=== PATIENT | male | born 1980 | race Caucasian/White ===

== ENCOUNTER 2016-07-10 13:20 | Emergency (ER) | payer MEDICARE, MEDICAID ==
[~2016-07-10] VITALS: Ht 180.3 cm; Wt 83.2 kg
[~2016-07-10 13:20] MED LIST: ARIP10TA13 INJ; ARIP10TA13 PO; BUPR75TA5 PO; ESCI20TA10 PO; FLUP25VI2 IM; LORA1TAB PO; PALI1.5T PO; RISP12.5 IM; RISP4TAB34; TRAZ100T15 PO
[2016-07-10] MEDS ORDERED: CEFTRIAXONE 1,000 MG ONE (14:20)
[2016-07-10] MEDS ORDERED: CEFTRIAXONE 1,000 MG IM ONE (14:30)
[2016-07-10 14:33] VITALS: BP 125/93
== END 2016-07-10 15:15 | disposition home or self-care (01) ==
LOC: ED 15:00
DX: L03.115 Cellulitis of right lower limb (principal)
CPT/HCPCS: 73610; 93971; 96372; 99284; J0696

== ENCOUNTER 2016-12-27 18:17 | Emergency (ER) | payer MEDICARE, MEDICAID ==
[~2016-12-27] VITALS: Ht 180.3 cm; Wt 90.0 kg
[~2016-12-27 18:17] MED LIST changes: -ARIP10TA13 INJ; -ARIP10TA13 PO; +ARIP10TA33 INJ; +ARIP10TA33 PO
[2016-12-27] MEDS ORDERED: LORazepam 1MG TABLET PO PRN (19:00)
[2016-12-27] MEDS ORDERED: ZIPRASIDONE 20 MG INJ IM PRN (19:00)
[2016-12-27 19:01] LABS: HEMATOCRIT 47.6 % (39.2-51.8); HEMOGLOBIN 15.5 g/dL (13.7-18.0)
[2016-12-27 19:10] LABS: ASPARTATE AMINO TRANSFERASE 24 U/L (15-37); BLOOD UREA NITROGEN 15 mg/dL (7-18)
[2016-12-27 19:14] LABS: ACETAMINOPHEN < 2 mcg/mL (10-30)
[2016-12-27] MEDS ORDERED: LORazepam 1MG TABLET ONE (20:41)
[2016-12-27] MEDS ORDERED: ZIPRASIDONE 20 MG INJ IM ONE (20:41)
[2016-12-28 11:10] LABS: DAU SCREEN DISCLAIMER
[2016-12-28 21:31] VITALS: BP 132/80
== END 2016-12-28 21:33 | disposition home or self-care (01) ==
LOC: ED 20:44
DX: F20.9 Schizophrenia, unspecified (principal); F31.9 Bipolar disorder, unspecified; F17.200 Nicotine dependence, unspecified, uncomplicated
CPT/HCPCS: 36415; 80053; 80307; 80329; 85025; 96372; 99284; J3486; G0479; G0480

== ENCOUNTER 2017-04-27 10:56 | Observation (INO) | payer MEDICARE, MEDICAID ==
[~2017-04-27] VITALS: Ht 180.3 cm; Wt 81.0 kg
[2017-04-27 12:51] LABS: BASOPHILS # (AUTO) 0.03 x10^3/uL (0-0.1); BASOPHILS % (AUTO) 0 % (0-1); EOSINOPHILS # (AUTO) 0.07 x10^3/uL (0-0.4); EOSINOPHILS % (AUTO) 1 % (1-7); LYMPHOCYTES # (AUTO) 1.72 x10^3/uL (1-3.4); LYMPHOCYTES % (AUTO) 18 % (22-44); MD NO; MEAN CORPUSCULAR HGB CONC 33.1 g/dL (33.2-36.2); MEAN CORPUSCULAR VOLUME 90.7 fL (81-97); MEAN PLATELET VOLUME 10.2 fL (7.4-10.4); MONOCYTES # (AUTO) 0.85 x10^3/uL (0.2-0.8); MONOCYTES % (AUTO) 9 % (2-9); NEUTROPHILS # (AUTO) 6.74 x10^3/uL (1.8-6.8); NEUTROPHILS % (AUTO) 72 % (42-75); PLATELET COUNT 227 x10^3/uL (130-400); RED BLOOD COUNT 4.66 x10^6/uL (4.38-5.82); RED CELL DISTRIBUTION WIDTH 14.9 % (9.4-14.8)
[2017-04-27 13:04] LABS: ALBUMIN 3.8 g/dL (3.4-5.0); ANION GAP 8 mmol/L (5-15); CALCIUM 8.8 mg/dL (8.5-10.1); CHLORIDE 105 mmol/L (98-107); CREATININE 0.87 mg/dL (0.7-1.3); SALICYLATE LEVEL 2.3 mg/dL (2.8-20.0)
[2017-04-27 13:06] LABS: ACETAMINOPHEN < 2 mcg/mL (10-30)
[2017-04-27 13:17] LABS: AMPHETAMINE SCREEN, URINE Positive (Negative); BARBITURATE SCREEN, URINE Negative (Negative); BENZODIAZEPINE SCREEN, URINE Negative (Negative); CANNABINOID SCREEN, URINE Positive (Negative); COCAINE SCREEN, URINE Negative (Negative); METHADONE SCREEN, URINE Negative (Negative); OPIATE SCREEN, URINE Negative (Negative)
[2017-04-27] MEDS ORDERED: ACETAMINOPHEN 325 MG TABLET PO PRN (17:00)
[2017-04-27] MEDS ORDERED: LORazepam 2 MG/ML, 1ML IM PRN (17:30)
[2017-04-28 17:33] VITALS: BP 129/90
[2017-04-28 19:44] VITALS: BP 142/95
[2017-04-29 07:50] VITALS: BP 125/89
[2017-04-29] MEDS ORDERED: METOPROLOL TARTRATE 50 MG TABLET PO SCH (10:00)
[2017-04-29 11:31] VITALS: BP 123/82
[2017-04-29 12:26] LABS: MICROSCOPIC NOT IND
[2017-04-29 12:29] LABS: CULTURE INDICATED? NO
[2017-04-29 19:26] VITALS: BP 128/87
[2017-04-29 21:30] VITALS: BP 124/86
[2017-04-29] MEDS ORDERED: ZIPRASIDONE 20MG CAPSULE PO ONE (22:00)
[2017-04-30 07:30] VITALS: BP 136/82
== END 2017-04-30 14:25 ==
LOC: ED 13:14 → SUATTDRO 16:36 → EDIP 16:56 → 2N 04-28 16:54
PROVIDERS: ADMIT Internal Medicine; ATTEND Internal Medicine
DX: R45.851 Suicidal ideations (principal); F32.9 Major depressive disorder, single episode, unspecified; F25.9 Schizoaffective disorder, unspecified
CPT/HCPCS: 36415; 71045; 80048; 80307; 80329; 81003; 82040; 85025; 96372; 99285; G0378; J2060; G0480

== ENCOUNTER 2017-08-04 12:57 | Emergency (ER) | payer MEDICARE, MEDICAID ==
[~2017-08-04] VITALS: Ht 180.3 cm; Wt 84.5 kg
[2017-08-04 12:59] VITALS: BP 130/84
== END 2017-08-04 14:02 | disposition home or self-care (01) ==
LOC: ED 14:00
DX: J34.0 Abscess, furuncle and carbuncle of nose (principal); L03.012 Cellulitis of left finger; F17.200 Nicotine dependence, unspecified, uncomplicated
CPT/HCPCS: 82962; 99283

== ENCOUNTER 2018-02-17 11:02 | Emergency (ER) | payer MEDICARE, MEDICAID ==
[~2018-02-17] VITALS: Ht 180.3 cm; Wt 89.0 kg
[~2018-02-17 11:02] MED LIST changes: +TRAZ-137 PO; -TRAZ100T15 PO
[2018-02-17 12:09] LABS: BASOPHILS # (AUTO) 0.03 x10^3/uL (0-0.1); BASOPHILS % (AUTO) 0 % (0-1); EOSINOPHILS % (AUTO) 0 % (1-7); LYMPHOCYTES # (AUTO) 1.03 x10^3/uL (1-3.4); LYMPHOCYTES % (AUTO) 6 % (22-44); MD NO; MEAN CORPUSCULAR HEMOGLOBIN 30.9 pg (27.5-34.5); MEAN CORPUSCULAR HGB CONC 33.8 g/dL (33.2-36.2); MEAN CORPUSCULAR VOLUME 91.6 fL (81-97); MEAN PLATELET VOLUME 9.5 fL (7.4-10.4); MONOCYTES # (AUTO) 0.55 x10^3/uL (0.2-0.8); MONOCYTES % (AUTO) 3 % (2-9); NEUTROPHILS # (AUTO) 16.08 x10^3/uL (1.8-6.8); NEUTROPHILS % (AUTO) 91 % (42-75); PLATELET COUNT 247 x10^3/uL (130-400); RED BLOOD COUNT 5.09 x10^6/uL (4.38-5.82); RED CELL DISTRIBUTION WIDTH 14.1 % (9.4-14.8)
[2018-02-17 12:23] LABS: ANION GAP 8 mmol/L (5-15); CHLORIDE 108 mmol/L (98-107); CREATININE 1.08 mg/dL (0.7-1.3)
[2018-02-17 12:42] LABS: AMPHETAMINE SCREEN, URINE Positive (Negative); BARBITURATE SCREEN, URINE Negative (Negative); BENZODIAZEPINE SCREEN, URINE Negative (Negative); CANNABINOID SCREEN, URINE Positive (Negative); COCAINE SCREEN, URINE Negative (Negative); METHADONE SCREEN, URINE Negative (Negative); OPIATE SCREEN, URINE Negative (Negative)
[2018-02-17 13:34] VITALS: BP 142/78
== END 2018-02-17 13:45 | disposition home or self-care (01) ==
LOC: ED 13:30
DX: F20.9 Schizophrenia, unspecified (principal); Z72.9 Problem related to lifestyle, unspecified; D72.829 Elevated white blood cell count, unspecified
CPT/HCPCS: 36415; 80048; 80307; 85025; 99284

== ENCOUNTER 2018-05-05 02:13 | Emergency (ER) | payer MEDICARE, MEDICAID ==
[~2018-05-05 02:13] MED LIST changes: +ANTIDEPRESSANT; +RISPERIDAL PO; +WELLBUTRIN PO
--- NOTE | 2018-05-05 02:39 | NUR ---
ASSUMED CARE OF PATIENT. PATIENT REPORTS HE WANTS TO KILL HIMSELF BY HITTING HIMSELF WITH A ROCK. ROOM SECURE. THREE BAGS OF BELONGINGS LOCKED UP. PT SEE BY DR UMANZOR. SITTER AT DOOR. WILL CONTINUE TO MONITOR.
[2018-05-05 02:58] LABS: BASOPHILS # (AUTO) 0.02 x10^3/uL (0-0.1); BASOPHILS % (AUTO) 0 % (0-1); EOSINOPHILS # (AUTO) 0.17 x10^3/uL (0-0.4); EOSINOPHILS % (AUTO) 3 % (1-7); LYMPHOCYTES # (AUTO) 1.99 x10^3/uL (1-3.4); LYMPHOCYTES % (AUTO) 33 % (22-44); MD NO; MEAN CORPUSCULAR HEMOGLOBIN 28.8 pg (27.5-34.5); MEAN CORPUSCULAR HGB CONC 32.5 g/dL (33.2-36.2); MEAN CORPUSCULAR VOLUME 88.7 fL (81-97); MEAN PLATELET VOLUME 9.3 fL (7.4-10.4); MONOCYTES # (AUTO) 0.72 x10^3/uL (0.2-0.8); MONOCYTES % (AUTO) 12 % (2-9); NEUTROPHILS # (AUTO) 3.14 x10^3/uL (1.8-6.8); NEUTROPHILS % (AUTO) 52 % (42-75); PLATELET COUNT 295 x10^3/uL (130-400); RED CELL DISTRIBUTION WIDTH 13.9 % (9.4-14.8)
[2018-05-05 03:07] LABS: ALANINE AMINOTRANSFERASE 27 U/L (12-78); ALBUMIN 3.1 g/dL (3.4-5.0); ANION GAP 5 mmol/L (5-15); CALCIUM 8.4 mg/dL (8.5-10.1); CHLORIDE 108 mmol/L (98-107); CREATININE 0.81 mg/dL (0.7-1.3); SALICYLATE LEVEL 3.2 mg/dL (2.8-20.0)
[2018-05-05 03:09] LABS: ALKALINE PHOSPHATASE 94 U/L (45-117); BILIRUBIN,TOTAL 0.1 mg/dL (0.2-1.0); TOTAL PROTEIN 6.8 g/dL (6.4-8.2)
[2018-05-05 03:10] LABS: ACETAMINOPHEN < 2 mcg/mL (10-30)
--- NOTE | 2018-05-05 03:28 | NUR ---
PT RESTING IN ROOM. SITTER AT DOOR. PT IS NOT ABLE TO PROVIDE A UA AT THIS TIME. WILL CONTINUE TO MONITOR.
--- NOTE | 2018-05-05 04:27 | NUR ---
REPORT CALLED INTO SOC
--- NOTE | 2018-05-05 04:38 | NUR ---
PT RESTING IN ROOM. SITTER AT BEDSIDE. WILL CONTINUE TO MONITOR.
--- NOTE | 2018-05-05 05:24 | NUR ---
PT RESTING IN ROOM. NO ACUTE DISTRESS NOTED. SITTER AT BEDSIDE. WILL CONTINUE TO MONITOR.
--- NOTE | 2018-05-05 05:47 | NUR ---
SOC ON THE TELE SCREEN TALKING TO PATIENT
[2018-05-05 06:04] VITALS: BP 113/87
--- NOTE | 2018-05-05 06:05 | NUR ---
DR HACKETT HAS UPDATED PATIENT.
--- NOTE | 2018-05-05 06:15 | NUR ---
PT WOULD NOT GIVE A UA. DR HACKETT SPOKE WITH PATIENT AND REEVALUATED PATIENT PT IS A&O X4. PT REFUSED TAXI VOUCHER. PT DISCHARGED PER DR HACKETT
== END 2018-05-05 06:04 | disposition home or self-care (01) ==
LOC: ED 03:02
DX: R45.851 Suicidal ideations (principal); Z72.9 Problem related to lifestyle, unspecified; F20.9 Schizophrenia, unspecified; F32.9 Major depressive disorder, single episode, unspecified; F17.200 Nicotine dependence, unspecified, uncomplicated
CPT/HCPCS: 36415; 80053; 80307; 80329; 85025; 99284; G0480

== ENCOUNTER 2018-06-10 19:11 | Emergency (ER) | payer MEDICARE ==
[~2018-06-10] VITALS: Ht 175.3 cm; Wt 89.9 kg
--- NOTE | 2018-06-10 19:36 | NUR ---
NO ROOM AVAILABLE AT THIS TIME. PT ON WALL IN FULL SIGHT OF NURSES STATION.
[2018-06-10 20:04] LABS: BASOPHILS % (AUTO) 1 % (0-1); EOSINOPHILS # (AUTO) 0.13 x10^3/uL (0-0.4); EOSINOPHILS % (AUTO) 2 % (1-7); LYMPHOCYTES # (AUTO) 1.67 x10^3/uL (1-3.4); LYMPHOCYTES % (AUTO) 23 % (22-44); MD NO; MEAN CORPUSCULAR HEMOGLOBIN 29.3 pg (27.5-34.5); MEAN CORPUSCULAR VOLUME 88.7 fL (81-97); MEAN PLATELET VOLUME 9.5 fL (7.4-10.4); MONOCYTES % (AUTO) 10 % (2-9); NEUTROPHILS # (AUTO) 4.69 x10^3/uL (1.8-6.8); NEUTROPHILS % (AUTO) 64 % (42-75); PLATELET COUNT 248 x10^3/uL (130-400); RED BLOOD COUNT 4.75 x10^6/uL (4.38-5.82); RED CELL DISTRIBUTION WIDTH 15.3 % (9.4-14.8)
[2018-06-10 20:12] LABS: ALANINE AMINOTRANSFERASE 44 U/L (12-78); ALBUMIN 3.6 g/dL (3.4-5.0); ANION GAP 6 mmol/L (5-15); CALCIUM 8.5 mg/dL (8.5-10.1); CHLORIDE 109 mmol/L (98-107); CREATININE 1.02 mg/dL (0.7-1.3)
[2018-06-10 20:14] LABS: AMPHETAMINE SCREEN, URINE Negative (Negative); BARBITURATE SCREEN, URINE Negative (Negative); BENZODIAZEPINE SCREEN, URINE Negative (Negative); CANNABINOID SCREEN, URINE Negative (Negative); COCAINE SCREEN, URINE Negative (Negative); METHADONE SCREEN, URINE Negative (Negative); OPIATE SCREEN, URINE Negative (Negative)
[2018-06-10 20:15] LABS: ALKALINE PHOSPHATASE 136 U/L (45-117); BILIRUBIN,TOTAL 0.2 mg/dL (0.2-1.0)
[2018-06-10 20:16] LABS: SALICYLATE LEVEL < 1.7 mg/dL (2.8-20.0)
[2018-06-10 20:17] LABS: ACETAMINOPHEN < 2 mcg/mL (10-30)
--- NOTE | 2018-06-10 20:17 | NUR ---
PT TO SECURED ROOM AND BELONGINGS TO SECURE LOCKER. PT WITH URINE TO LAB AND AWAITING ERP ORDERS.
[2018-06-10 20:43] VITALS: BP 141/88
== END 2018-06-10 20:50 | disposition home or self-care (01) ==
LOC: ED 20:02
DX: F32.9 Major depressive disorder, single episode, unspecified (principal); F15.10 Other stimulant abuse, uncomplicated; M54.2 Cervicalgia; F20.9 Schizophrenia, unspecified; F17.200 Nicotine dependence, unspecified, uncomplicated; Z59.0 Homelessness
CPT/HCPCS: 36415; 71046; 80053; 80307; 80329; 85025; 99284; G0480

== ENCOUNTER 2018-06-11 11:14 | Emergency (ER) | payer MEDICARE ==
[~2018-06-11] VITALS: Ht 180.3 cm; Wt 88.9 kg
[2018-06-11 11:21] VITALS: BP 124/83
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
[2018-06-11] MEDS ORDERED: LORazepam 1MG TABLET ONE (11:52)
--- NOTE | 2018-06-11 11:56 | NUR ---
First contact with pt. Pt c/o SI-plan to jump off a bridge. Pt placed in gown, positioned for comfort in bed with warm blanket. All pt belongings placed in bag and secured in locker. Room is secured, sitter within eyesight of pt. Pt medicated per MAR, given water to drink. Pt denies other needs.
[2018-06-11 11:57] LABS: BASOPHILS # (AUTO) 0.02 x10^3/uL (0-0.1); BASOPHILS % (AUTO) 0 % (0-1); EOSINOPHILS % (AUTO) 2 % (1-7); LYMPHOCYTES # (AUTO) 1.44 x10^3/uL (1-3.4); LYMPHOCYTES % (AUTO) 22 % (22-44); MD NO; MEAN CORPUSCULAR HEMOGLOBIN 28.3 pg (27.5-34.5); MEAN CORPUSCULAR VOLUME 88.3 fL (81-97); MEAN PLATELET VOLUME 9.1 fL (7.4-10.4); MONOCYTES # (AUTO) 0.66 x10^3/uL (0.2-0.8); MONOCYTES % (AUTO) 10 % (2-9); NEUTROPHILS # (AUTO) 4.48 x10^3/uL (1.8-6.8); NEUTROPHILS % (AUTO) 67 % (42-75); PLATELET COUNT 252 x10^3/uL (130-400); RED BLOOD COUNT 4.59 x10^6/uL (4.38-5.82); RED CELL DISTRIBUTION WIDTH 14.9 % (9.4-14.8)
[2018-06-11] MEDS ORDERED: LORazepam 1MG TABLET PO ONE (12:00)
[2018-06-11 12:08] LABS: ALANINE AMINOTRANSFERASE 45 U/L (12-78); ALBUMIN 3.4 g/dL (3.4-5.0); ANION GAP 6 mmol/L (5-15); CALCIUM 8.5 mg/dL (8.5-10.1); CHLORIDE 107 mmol/L (98-107); CREATININE 0.88 mg/dL (0.7-1.3)
[2018-06-11 12:10] LABS: ALKALINE PHOSPHATASE 117 U/L (45-117); BILIRUBIN,TOTAL 0.1 mg/dL (0.2-1.0); TOTAL PROTEIN 6.2 g/dL (6.4-8.2)
[2018-06-11 12:23] LABS: ACETAMINOPHEN < 2 mcg/mL (10-30); SALICYLATE LEVEL < 1.7 mg/dL (2.8-20.0)
[2018-06-11 12:24] LABS: AMPHETAMINE SCREEN, URINE Negative (Negative); BARBITURATE SCREEN, URINE Negative (Negative); BENZODIAZEPINE SCREEN, URINE Negative (Negative); CANNABINOID SCREEN, URINE Negative (Negative); COCAINE SCREEN, URINE Negative (Negative); METHADONE SCREEN, URINE Negative (Negative); OPIATE SCREEN, URINE Negative (Negative)
--- NOTE | 2018-06-11 13:17 | NUR ---
Pt given meal tray per request, denies other needs.
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
== END 2018-06-11 13:54 | disposition home or self-care (01) ==
LOC: ED 13:31
DX: F33.1 Major depressive disorder, recurrent, moderate (principal); F20.9 Schizophrenia, unspecified; Z72.9 Problem related to lifestyle, unspecified
CPT/HCPCS: 36415; 80053; 80307; 80329; 85025; 99284; G0480

== ENCOUNTER 2018-07-06 13:06 | Inpatient (IN) | payer MEDICARE ==
[~2018-07-06] VITALS: Ht 180.3 cm; Wt 86.5 kg
--- NOTE | 2018-07-06 14:01 | NUR ---
PT PRESENTS TO ED WITH C/O SI WITH PLAN TO JUMP OFF BRIDGE. PT A&OX4, RESPS EVEN AND UNLABORED. PT PLACED IN GOWN, GIVEN WARM BLANKET. ALL BELONGINGS PLACED IN LOCKED CABINET FOR SAFEKEEPING. PT INSTRUCTED TO PROVIDE URINE SAMPLE WHEN ABLE, URINAL PLACED AT BEDSIDE.
[2018-07-06 14:17] LABS: BASOPHILS # (AUTO) 0.04 x10^3/uL (0-0.1); BASOPHILS % (AUTO) 1 % (0-1); EOSINOPHILS # (AUTO) 0.07 x10^3/uL (0-0.4); EOSINOPHILS % (AUTO) 1 % (1-7); LYMPHOCYTES # (AUTO) 1.53 x10^3/uL (1-3.4); LYMPHOCYTES % (AUTO) 21 % (22-44); MD NO; MEAN CORPUSCULAR HEMOGLOBIN 28.7 pg (27.5-34.5); MEAN CORPUSCULAR HGB CONC 32.7 g/dL (33.2-36.2); MEAN CORPUSCULAR VOLUME 87.8 fL (81-97); MEAN PLATELET VOLUME 9.7 fL (7.4-10.4); MONOCYTES # (AUTO) 0.79 x10^3/uL (0.2-0.8); MONOCYTES % (AUTO) 11 % (2-9); NEUTROPHILS # (AUTO) 4.88 x10^3/uL (1.8-6.8); NEUTROPHILS % (AUTO) 67 % (42-75); PLATELET COUNT 255 x10^3/uL (130-400); RED BLOOD COUNT 4.92 x10^6/uL (4.38-5.82); RED CELL DISTRIBUTION WIDTH 15.7 % (9.4-14.8)
--- NOTE | 2018-07-06 14:22 | NUR ---
RECEIVED REPORT FROM BONNY OROPEZA. PT RESTING ON [facility]. FANY. SITTER AT BEDSIDE. ROOM SECURED.
[2018-07-06 14:29] LABS: ALBUMIN 3.4 g/dL (3.4-5.0); ANION GAP 7 mmol/L (5-15); CALCIUM 8.8 mg/dL (8.5-10.1); CHLORIDE 106 mmol/L (98-107); CREATININE 0.97 mg/dL (0.7-1.3); SALICYLATE LEVEL 2.9 mg/dL (2.8-20.0)
[2018-07-06 14:32] LABS: ACETAMINOPHEN < 2 mcg/mL (10-30)
--- NOTE | 2018-07-06 15:30 | NUR ---
PT RESTING ON [facility]. FANY. SITTER REMAINS AT BEDSIDE. ROOM REMAINS SECURE.
--- NOTE | 2018-07-06 16:30 | NUR ---
PT RESTING ON [facility]. FANY. SITTER REMAINS AT BEDSIDE. ROOM REMAINS SECURE.
[2018-07-06 16:35] LABS: AMPHETAMINE SCREEN, URINE Positive (Negative); BARBITURATE SCREEN, URINE Negative (Negative); BENZODIAZEPINE SCREEN, URINE Negative (Negative); CANNABINOID SCREEN, URINE Positive (Negative); COCAINE SCREEN, URINE Negative (Negative); METHADONE SCREEN, URINE Negative (Negative); OPIATE SCREEN, URINE Negative (Negative)
--- NOTE | 2018-07-06 17:44 | NUR ---
PT PROVIDED W/ SI DINNER TRAY.
--- NOTE | 2018-07-06 17:57 | NUR ---
PT SPEAKING W/ DR. CRESPO, SOC.
[2018-07-06] MEDS ORDERED: LORazepam 1MG TABLET ONE (18:49)
--- NOTE | 2018-07-06 18:59 | NUR ---
REPORT GIVEN TO FARZAD ALLISON RN.
[2018-07-06] MEDS ORDERED: LORazepam 1MG TABLET PO ONE (19:00)
[2018-07-06] MEDS ORDERED: ACETAMINOPHEN 325 MG TABLET PO PRN (20:00)
[2018-07-06] MEDS ORDERED: hydrOXyzine 10MG TABLET PO PRN (20:00)
[2018-07-06] MEDS ORDERED: BISACODYL 10 MG SUPP PR PRN (20:00)
[2018-07-06] MEDS ORDERED: ONDANSETRON ODT 4 MG PO PRN (20:00)
[2018-07-06] MEDS ORDERED: POLYETHYLENE GLYCOL 17 GM PACKET PO PRN (20:00)
[2018-07-06 20:37] VITALS: BP 122/76
[2018-07-06 21:00] VITALS: BP 122/76
[2018-07-06] MEDS: ZIPRASIDONE 20MG CAPSULE PO SCH (21:05)
[2018-07-06] MEDS: NICOTINE 7 MG/24 HR PATCH.TD24 TD SCH (21:06)
[2018-07-06] MEDS: BENZTROPINE 1 MG TABLET PO SCH (21:06)
[2018-07-06] MEDS ORDERED: hydrOXyzine 50MG TABLET PO PRN (21:30)
[2018-07-07 07:40] VITALS: BP 116/73
[2018-07-07] MEDS: ZIPRASIDONE 20MG CAPSULE PO SCH ×2 (09:06→20:14)
[2018-07-07] MEDS: BENZTROPINE 1 MG TABLET PO SCH ×2 (09:06→20:14)
[2018-07-07] MEDS: SENNA/DOCUSATE TABLET PO SCH (09:10)
[2018-07-07 19:39] VITALS: BP 118/71
[2018-07-07 19:40] VITALS: BP 122/83
[2018-07-07] MEDS: NICOTINE 7 MG/24 HR PATCH.TD24 TD SCH (20:14)
[2018-07-08 08:00] VITALS: BP 104/68
[2018-07-08] MEDS: ZIPRASIDONE 20MG CAPSULE PO SCH ×2 (08:13→20:41)
[2018-07-08] MEDS: BENZTROPINE 1 MG TABLET PO SCH ×2 (08:13→20:43)
[2018-07-08] MEDS: SENNA/DOCUSATE TABLET PO SCH (08:18)
[2018-07-08 20:03] VITALS: BP 114/71
[2018-07-08] MEDS: NICOTINE 7 MG/24 HR PATCH.TD24 TD SCH (20:32)
[2018-07-09 07:44] VITALS: BP 101/68
[2018-07-09] MEDS: BENZTROPINE 1 MG TABLET PO SCH ×2 (09:18→20:08)
[2018-07-09] MEDS: SENNA/DOCUSATE TABLET PO SCH (09:18)
[2018-07-09] MEDS: ZIPRASIDONE 20MG CAPSULE PO SCH ×2 (09:18→20:08)
[2018-07-09] MEDS: NICOTINE 7 MG/24 HR PATCH.TD24 TD SCH (20:07)
[2018-07-09 20:25] VITALS: BP 133/86
[2018-07-10 07:26] VITALS: BP 108/75
[2018-07-10] MEDS: SENNA/DOCUSATE TABLET PO SCH (07:28)
[2018-07-10] MEDS: ZIPRASIDONE 20MG CAPSULE PO SCH ×2 (07:29→20:01)
[2018-07-10] MEDS: BENZTROPINE 1 MG TABLET PO SCH ×2 (07:29→20:01)
[2018-07-10 19:09] VITALS: BP 100/63
[2018-07-10] MEDS: NICOTINE 7 MG/24 HR PATCH.TD24 TD SCH (20:01)
[2018-07-11 07:46] VITALS: BP 100/63
[2018-07-11] MEDS: BENZTROPINE 1 MG TABLET PO SCH ×2 (08:27→20:04)
[2018-07-11] MEDS: ZIPRASIDONE 20MG CAPSULE PO SCH ×2 (08:27→20:04)
[2018-07-11] MEDS: SENNA/DOCUSATE TABLET PO SCH (08:28)
[2018-07-11 19:45] VITALS: BP 111/79
[2018-07-11] MEDS: NICOTINE 7 MG/24 HR PATCH.TD24 TD SCH (20:03)
[2018-07-12 07:26] VITALS: BP 100/64
[2018-07-12] MEDS: SENNA/DOCUSATE TABLET PO SCH ×2 (07:39→07:43)
[2018-07-12] MEDS: BENZTROPINE 1 MG TABLET PO SCH (07:39)
[2018-07-12] MEDS: ZIPRASIDONE 20MG CAPSULE PO SCH (07:39)
== END 2018-07-12 11:38 | DRG 885 ==
LOC: ED 15:34 → 2N 19:37
PROVIDERS: ADMIT Internal Medicine; ATTEND Internal Medicine
DX: F25.1 Schizoaffective disorder, depressive type (principal); R45.851 Suicidal ideations; F12.10 Cannabis abuse, uncomplicated; F15.10 Other stimulant abuse, uncomplicated; F17.210 Nicotine dependence, cigarettes, uncomplicated; Z59.0 Homelessness; Z91.14 Patient's other noncompliance with medication regimen
CPT/HCPCS: 36415; 80048; 80307; 80329; 82040; 85025; 99285; G0378; Q0162; G0480

== ENCOUNTER 2018-08-24 16:35 | Inpatient (IN) | payer MEDICARE ==
[~2018-08-24] VITALS: Ht 180.3 cm; Wt 80.5 kg
[2018-08-24 17:48] LABS: MEAN CORPUSCULAR HEMOGLOBIN 29.1 pg (27.5-34.5); MEAN CORPUSCULAR HGB CONC 32.3 g/dL (33.2-36.2); MEAN PLATELET VOLUME 8.5 fL (7.4-10.4); PLATELET COUNT 308 x10^3/uL (130-400); RED BLOOD COUNT 4.19 x10^6/uL (4.38-5.82); RED CELL DISTRIBUTION WIDTH 14.1 % (9.4-14.8)
[2018-08-24 17:55] LABS: ALBUMIN 2.7 g/dL (3.4-5.0); ANION GAP 6 mmol/L (5-15); CALCIUM 8.7 mg/dL (8.5-10.1); CHLORIDE 106 mmol/L (98-107); CREATININE 1.12 mg/dL (0.7-1.3)
[2018-08-24] MEDS ORDERED: SODIUM CHLORIDE FLUSH 10ML SYR IVF ONE (18:00)
[2018-08-24] MEDS ORDERED: SODIUM CHLORIDE 0.9% 1,000ML IVBOLUS ONE ×2 (18:00)
[2018-08-24 18:11] LABS: BASOPHILS # (AUTO) 0.03 x10^3/uL (0-0.1); BASOPHILS % (AUTO) 0 % (0-1); EOSINOPHILS # (AUTO) 0.06 x10^3/uL (0-0.4); EOSINOPHILS % (AUTO) 0 % (1-7); LYMPHOCYTES # (AUTO) 0.86 x10^3/uL (1-3.4); LYMPHOCYTES % (AUTO) 6 % (22-44); MD SCAN; MONOCYTES # (AUTO) 1.65 x10^3/uL (0.2-0.8); MONOCYTES % (AUTO) 12 % (2-9); NEUTROPHILS # (AUTO) 11.11 x10^3/uL (1.8-6.8); NEUTROPHILS % (AUTO) 81 % (42-75)
[2018-08-24] MEDS ORDERED: VANCOMYCIN PER PHARMACY MC ONE (18:30)
[2018-08-24] MEDS ORDERED: VANCOMYCIN 1,500 MG in SODIUM CHLORIDE 0.9% 250 ML IV ONE (18:30)
--- NOTE | 2018-08-24 18:50 | NUR ---
VANCOMYCIN ADMINISTERED PER EMAR VITALS STABLE ON RESEARCH AND DEVELOPMENT RESEARCHER PATIENT UPDATED ON ESTIMATED POC
[2018-08-24] MEDS ORDERED: CEFTRIAXONE PMX 1GM/50ML 50 ML IV ONE (20:00)
--- NOTE | 2018-08-24 20:43 | NUR ---
REPORT TO URIEL DRAPER FOR ROOM 376.
[2018-08-24] MEDS ORDERED: CEFTRIAXONE PMX 1GM/50ML 50 ML ONE (20:44)
[2018-08-24] MEDS ORDERED: DIPH,PERTUSS(ACELL),TET VAC/PF 0.5 ML IM-VACC ONE (20:50)
[2018-08-24] MEDS ORDERED: DIPH,PERTUSS(ACELL),TET VAC/PF NC IM-VACC ONE (21:00)
[2018-08-24] MEDS ORDERED: hydrALAzine 20 MG/ML, 1ML IVPush PRN (21:00)
[2018-08-24] MEDS ORDERED: OXYcodone IR 5MG TABLET PO PRN (21:00)
[2018-08-24] MEDS ORDERED: ONDANSETRON 2MG/ML, 2ML IVPush PRN (21:00)
[2018-08-24] MEDS ORDERED: DOCUSATE 100 MG CAPSULE PO PRN (21:00)
[2018-08-24] MEDS ORDERED: ACETAMINOPHEN 325 MG TABLET PO PRN (21:00)
[2018-08-24] MEDS ORDERED: hydrOXyzine 50MG TABLET PO PRN (21:00)
[2018-08-24] MEDS ORDERED: VANCOMYCIN PER PHARMACY MC PRN (21:00)
[2018-08-24] MEDS ORDERED: ONDANSETRON ODT 4 MG PO PRN (21:00)
[2018-08-24] MEDS ORDERED: PROMETHAZINE 25 MG/ML, 1ML IM PRN (21:00)
[2018-08-24] MEDS ORDERED: morphine SULFATE 10 MG/ML, 1ML IVPush PRN (21:00)
[2018-08-24] MEDS ORDERED: POLYETHYLENE GLYCOL 17 GM PACKET PO PRN (21:00)
[2018-08-24] MEDS ORDERED: BISACODYL 10 MG SUPP PR PRN (21:00)
[2018-08-24 21:22] VITALS: BP 107/70
[2018-08-24 21:22] LABS: HCT (SEDRATE) 37.7 % (39.2-51.8)
[2018-08-24 21:24] LABS: FREE T4 (FREE THYROXINE) 1.23 ng/dL (0.76-1.46); THYROID STIMULATING HORMONE 0.98 mIU/L (0.358-3.740)
[2018-08-24] MEDS ORDERED: PHARMACOKINETIC MONITORING MC PRN (22:00)
[2018-08-24] MEDS ORDERED: PHARMACOKINETIC CONSULTATION MC ONE (22:00)
[2018-08-24] MEDS: BENZTROPINE 1 MG TABLET PO SCH (23:19)
[2018-08-24] MEDS: ZIPRASIDONE 20MG CAPSULE PO SCH (23:20)
[2018-08-24] MEDS: PIPERACILLIN/TAZO/PMX 3.375GM 50 ML IV SCH (23:22)
[2018-08-24] MEDS: D5%-0.9% NACL 1,000 ML IV SCH (23:22)
[2018-08-25 01:25] VITALS: BP 112/69
[2018-08-25 04:15] VITALS: BP 94/60
[2018-08-25] MEDS: PIPERACILLIN/TAZO/PMX 3.375GM 50 ML IV SCH (04:39)
[2018-08-25] MEDS: VANCOMYCIN 1,600 MG in SODIUM CHLORIDE 0.9% 250 ML IV SCH ×2 (05:29→17:35)
[2018-08-25 06:28] LABS: BASOPHILS # (AUTO) 0.03 x10^3/uL (0-0.1); BASOPHILS % (AUTO) 0 % (0-1); CHLORIDE 110 mmol/L (98-107); EOSINOPHILS # (AUTO) 0.18 x10^3/uL (0-0.4); EOSINOPHILS % (AUTO) 2 % (1-7); LYMPHOCYTES % (AUTO) 11 % (22-44); MD NO; MEAN CORPUSCULAR HEMOGLOBIN 29.2 pg (27.5-34.5); MEAN CORPUSCULAR HGB CONC 32.7 g/dL (33.2-36.2); MEAN CORPUSCULAR VOLUME 89.2 fL (81-97); MEAN PLATELET VOLUME 8.7 fL (7.4-10.4); MONOCYTES # (AUTO) 1.08 x10^3/uL (0.2-0.8); MONOCYTES % (AUTO) 12 % (2-9); NEUTROPHILS # (AUTO) 6.76 x10^3/uL (1.8-6.8); NEUTROPHILS % (AUTO) 75 % (42-75); PLATELET COUNT 282 x10^3/uL (130-400); RED BLOOD COUNT 3.99 x10^6/uL (4.38-5.82); RED CELL DISTRIBUTION WIDTH 14.4 % (9.4-14.8)
[2018-08-25 06:43] LABS: ALANINE AMINOTRANSFERASE 16 U/L (12-78); ALBUMIN 2.4 g/dL (3.4-5.0); ALKALINE PHOSPHATASE 71 U/L (45-117); ANION GAP 5 mmol/L (5-15); BILIRUBIN,TOTAL 0.5 mg/dL (0.2-1.0); CALCIUM 8.2 mg/dL (8.5-10.1); CHOL/HDL RATIO 4.1; CHOLESTEROL, TOTAL 116 mg/dL (140-239); CREATININE 0.83 mg/dL (0.7-1.3); HDL CHOL % 24 % (26-37); HDL CHOLESTEROL (DIRECT) 28 mg/dL (40-60); LDL CHOLESTEROL,CALCULATED 68 mg/dL (54-169); LDL/HDL RATIO 2.4 (0.5-3.0); TOTAL PROTEIN 6.4 g/dL (6.4-8.2); TRIGLYCERIDES 100 mg/dL (50-200); VLDL CHOLESTEROL 20 mg/dL (0-25)
[2018-08-25] MEDS ORDERED: ACETAMINOPHEN 325 MG TABLET PO PRN (07:30)
[2018-08-25] MEDS: ENOXAPARIN 40 MG/0.4 ML SQ SCH (07:30)
[2018-08-25] MEDS ORDERED: OXYcodone IR 5MG TABLET PO PRN (09:00)
[2018-08-25] MEDS: ZIPRASIDONE 20MG CAPSULE PO SCH ×2 (09:00→21:52)
[2018-08-25] MEDS: BENZTROPINE 1 MG TABLET PO SCH ×2 (09:00→21:52)
[2018-08-25 09:41] VITALS: BP 85/54
[2018-08-25] MEDS: D5%-0.9% NACL 1,000 ML IV SCH (10:00)
[2018-08-25] MEDS ORDERED: KETOROLAC 30 MG/1 ML ONE (11:15)
[2018-08-25] MEDS ORDERED: PROPOFOL 10 MG/ML, 20ML ONE (11:15)
[2018-08-25] MEDS ORDERED: ONDANSETRON 2MG/ML, 2ML ONE (11:15)
[2018-08-25] MEDS ORDERED: FENTANYL PF 100 MCG/2ML ONE (11:22)
[2018-08-25] MEDS ORDERED: HALOPERIDOL 5 MG/ML IV PRN (11:30)
[2018-08-25] MEDS ORDERED: LABETALOL 5MG/ML, 20ML IV PRN (11:30)
[2018-08-25] MEDS ORDERED: HYDROmorphone 2 MG/ML, 1ML IVPush PRN (11:30)
[2018-08-25] MEDS ORDERED: PROMETHAZINE 25 MG/ML, 1ML IV PRN (11:30)
[2018-08-25] MEDS ORDERED: MEPERIDINE/PF 25MG/0.5ML IVPush PRN (11:30)
[2018-08-25] MEDS ORDERED: FENTANYL PF 100 MCG/2ML IV PRN (11:30)
[2018-08-25] MEDS ORDERED: METOPROLOL 1 MG/ML, 5ML IV PRN (11:30)
[2018-08-25] MEDS ORDERED: PROCHLORPERAZINE 5 MG/ML, 2ML IV PRN (11:30)
[2018-08-25] MEDS ORDERED: OXYcodone 5 MG/5 ML ORAL.SOL UDC PO PRN (11:30)
[2018-08-25] MEDS ORDERED: hydrALAzine 20 MG/ML, 1ML IV PRN (11:30)
[2018-08-25] MEDS ORDERED: OXYcodone 5 MG/5 ML ORAL.SOL UDC ONE (12:05)
[2018-08-25 12:50] VITALS: BP 110/73
[2018-08-25 17:43] LABS: HEMOGLOBIN A1C 5.5 % (4.2-6.3)
[2018-08-25 19:45] VITALS: BP 110/73
[2018-08-26 01:17] VITALS: BP 108/86
[2018-08-26] MEDS: VANCOMYCIN 1,600 MG in SODIUM CHLORIDE 0.9% 250 ML IV SCH (05:24)
[2018-08-26 07:26] VITALS: BP 110/74
[2018-08-26 08:20] LABS: BASOPHILS # (AUTO) 0.05 x10^3/uL (0-0.1); BASOPHILS % (AUTO) 0 % (0-1); EOSINOPHILS % (AUTO) 1 % (1-7); LYMPHOCYTES # (AUTO) 1.66 x10^3/uL (1-3.4); LYMPHOCYTES % (AUTO) 14 % (22-44); MD NO; MEAN CORPUSCULAR HEMOGLOBIN 28.1 pg (27.5-34.5); MEAN CORPUSCULAR HGB CONC 31.6 g/dL (33.2-36.2); MEAN CORPUSCULAR VOLUME 88.8 fL (81-97); MEAN PLATELET VOLUME 8.7 fL (7.4-10.4); MONOCYTES # (AUTO) 1.09 x10^3/uL (0.2-0.8); MONOCYTES % (AUTO) 9 % (2-9); NEUTROPHILS # (AUTO) 8.86 x10^3/uL (1.8-6.8); NEUTROPHILS % (AUTO) 75 % (42-75); PLATELET COUNT 286 x10^3/uL (130-400); RED BLOOD COUNT 4.02 x10^6/uL (4.38-5.82); RED CELL DISTRIBUTION WIDTH 13.8 % (9.4-14.8)
[2018-08-26] MEDS: ENOXAPARIN 40 MG/0.4 ML SQ SCH (09:07)
[2018-08-26] MEDS: ZIPRASIDONE 20MG CAPSULE PO SCH ×2 (09:07→20:00)
[2018-08-26] MEDS: BENZTROPINE 1 MG TABLET PO SCH ×2 (09:07→19:58)
[2018-08-26] MEDS ORDERED: AMPICILLIN/SULBACTAM 3 GM in SODIUM CHLORIDE 0.9% 100 ML IV SCH (11:00)
[2018-08-26 14:24] VITALS: BP 103/68
[2018-08-26] MEDS: AMOXICILLIN/CLAV 875-125MG TABLET PO SCH (16:43)
[2018-08-26] MEDS: LINEZOLID 600 MG TABLET PO SCH (16:43)
[2018-08-26 19:32] VITALS: BP 107/70
[2018-08-27] MEDS: AMOXICILLIN/CLAV 875-125MG TABLET PO SCH ×3 (00:29→16:41)
[2018-08-27 00:54] VITALS: BP 101/67
[2018-08-27] MEDS: LINEZOLID 600 MG TABLET PO SCH (04:25)
[2018-08-27 07:35] VITALS: BP 114/75
[2018-08-27] MEDS: ZIPRASIDONE 20MG CAPSULE PO SCH ×2 (08:45→21:53)
[2018-08-27] MEDS: BENZTROPINE 1 MG TABLET PO SCH ×2 (08:45→21:52)
[2018-08-27] MEDS: ENOXAPARIN 40 MG/0.4 ML SQ SCH (08:46)
[2018-08-27 13:23] VITALS: BP 106/67
[2018-08-27 21:56] VITALS: BP 103/68
[2018-08-28] MEDS: AMOXICILLIN/CLAV 875-125MG TABLET PO SCH ×2 (00:55→08:48)
[2018-08-28 00:57] VITALS: BP 108/63
[2018-08-28 05:39] LABS: BASOPHILS # (AUTO) 0.07 x10^3/uL (0-0.1); BASOPHILS % (AUTO) 1 % (0-1); EOSINOPHILS # (AUTO) 0.25 x10^3/uL (0-0.4); EOSINOPHILS % (AUTO) 3 % (1-7); HCT (SEDRATE) 41.2 % (39.2-51.8); LYMPHOCYTES # (AUTO) 2.04 x10^3/uL (1-3.4); LYMPHOCYTES % (AUTO) 24 % (22-44); MD NO; MEAN CORPUSCULAR HEMOGLOBIN 28.9 pg (27.5-34.5); MEAN CORPUSCULAR HGB CONC 32.4 g/dL (33.2-36.2); MEAN CORPUSCULAR VOLUME 89.3 fL (81-97); MEAN PLATELET VOLUME 8.8 fL (7.4-10.4); MONOCYTES # (AUTO) 0.76 x10^3/uL (0.2-0.8); MONOCYTES % (AUTO) 9 % (2-9); NEUTROPHILS # (AUTO) 5.56 x10^3/uL (1.8-6.8); NEUTROPHILS % (AUTO) 64 % (42-75); PLATELET COUNT 372 x10^3/uL (130-400); RED BLOOD COUNT 4.62 x10^6/uL (4.38-5.82); RED CELL DISTRIBUTION WIDTH 14.1 % (9.4-14.8)
[2018-08-28 05:47] LABS: CHLORIDE 111 mmol/L (98-107)
[2018-08-28 06:00] LABS: % IRON SATURATION 19 % (20-55); ALANINE AMINOTRANSFERASE 37 U/L (12-78); ALBUMIN 2.6 g/dL (3.4-5.0); ALKALINE PHOSPHATASE 75 U/L (45-117); ANION GAP 4 mmol/L (5-15); BILIRUBIN,TOTAL 0.1 mg/dL (0.2-1.0); CALCIUM 8.9 mg/dL (8.5-10.1); CREATININE 0.85 mg/dL (0.7-1.3); IRON LEVEL 45 mcg/dL (65-175); TOTAL IRON BINDING CAPACITY 240 mcg/dL (250-450); TOTAL PROTEIN 7.1 g/dL (6.4-8.2)
[2018-08-28 07:32] VITALS: BP 100/64
[2018-08-28] MEDS: ZIPRASIDONE 20MG CAPSULE PO SCH (08:48)
[2018-08-28] MEDS: BENZTROPINE 1 MG TABLET PO SCH (08:48)
[2018-08-28] MEDS: ENOXAPARIN 40 MG/0.4 ML SQ SCH (08:48)
== END 2018-08-28 10:13 | disposition left against medical advice (07) | DRG 853 ==
LOC: ED 16:53 → EDIP 20:32 → 3NE 20:45
PROVIDERS: ADMIT Internal Medicine; ATTEND Internal Medicine
PROC: 0JBP0ZZ Excision of Left Lower Leg Subcutaneous Tissue and Fascia, Open Approach (ICD-10-PCS; principal; 2018-08-28)
DX: A41.9 Sepsis, unspecified organism (principal); E43 Unspecified severe protein-calorie malnutrition; L03.116 Cellulitis of left lower limb; I95.9 Hypotension, unspecified; B95.61 Methicillin susceptible Staphylococcus aureus infection as the cause of diseases classified elsewhere; M72.9 Fibroblastic disorder, unspecified; F32.9 Major depressive disorder, single episode, unspecified; F17.210 Nicotine dependence, cigarettes, uncomplicated; F25.9 Schizoaffective disorder, unspecified; E83.51 Hypocalcemia; D63.8 Anemia in other chronic diseases classified elsewhere; D50.9 Iron deficiency anemia, unspecified; F12.90 Cannabis use, unspecified, uncomplicated; Z53.21 Procedure and treatment not carried out due to patient leaving prior to being seen by health care provider; F15.10 Other stimulant abuse, uncomplicated; Z91.19 Patient's noncompliance with other medical treatment and regimen; Z59.0 Homelessness; Z63.8 Other specified problems related to primary support group; Z68.24 Body mass index [BMI] 24.0-24.9, adult
CPT/HCPCS: 36415; 71045; 80048; 80053; 80061; 82040; 83036; 83540; 83550; 83605; 83735; 84145; 84439; 84443; 85025; 85651; 86140; 87040; 87070; 87077; 87147; 87176; 87181; 87186; 87205; 90471; 90715; 93005; G0378; J0295; J0696; J1650; J1885; J2405; J2543; J2704; J3010; J3370; J7042; J7030; J7050

== ENCOUNTER 2019-01-17 17:36 | Emergency (ER) | payer MEDICARE, MEDICAID ==
[~2019-01-17] VITALS: Ht 180.3 cm; Wt 84.5 kg
[2019-01-17 17:43] VITALS: BP 129/92
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
== END 2019-01-17 18:47 | disposition home or self-care (01) ==
LOC: ED 18:15
DX: F20.9 Schizophrenia, unspecified (principal); R00.0 Tachycardia, unspecified; Z91.14 Patient's other noncompliance with medication regimen; Z72.9 Problem related to lifestyle, unspecified; F17.200 Nicotine dependence, unspecified, uncomplicated; F10.10 Alcohol abuse, uncomplicated; F12.10 Cannabis abuse, uncomplicated
CPT/HCPCS: 93005; 99283

== ENCOUNTER 2019-01-19 01:07 | Emergency (ER) | payer MEDICARE, MEDICAID ==
[~2019-01-19] VITALS: Ht 180.3 cm; Wt 84.5 kg
[2019-01-19 01:09] VITALS: BP 123/83
--- NOTE | 2019-01-19 01:19 | NUR ---
PT AMBULATES FROM TRIAGE TO ROOM WITH A STEADY GAIT.
[2019-01-19] MEDS ORDERED: IBUPROFEN 200 MG TABLET PO ONE (01:30)
[2019-01-19] MEDS ORDERED: IBUPROFEN 600 MG TABLET ONE (01:52)
--- NOTE | 2019-01-19 01:55 | NUR ---
PT MEDICATED PER MAR.
--- NOTE | 2019-01-19 02:19 | NUR ---
PT D/C WITH D/C SUMMARY AND SCRIPTS. ALL QUESTIONS ANSWERED. PT AMBULATES TO REGISTRATION DESK WITH STEADY GAIT FOR D/C HOME.
== END 2019-01-19 02:23 | disposition home or self-care (01) ==
LOC: ED 01:21
DX: S80.02XA Contusion of left knee, initial encounter (principal); F32.9 Major depressive disorder, single episode, unspecified; F25.9 Schizoaffective disorder, unspecified; W50.0XXA Accidental hit or strike by another person, initial encounter; Y93.89 Activity, other specified; Y92.830 Public park as the place of occurrence of the external cause; Y99.8 Other external cause status
CPT/HCPCS: 99283

== ENCOUNTER 2019-01-25 17:24 | Emergency (ER) | payer MEDICARE, MEDICAID ==
[~2019-01-25] VITALS: Ht 182.9 cm; Wt 75.0 kg
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
[2019-01-25 19:09] LABS: ALBUMIN 3.3 g/dL (3.4-5.0); ANION GAP 5 mmol/L (5-15); CHLORIDE 109 mmol/L (98-107)
[2019-01-25 19:13] LABS: ALANINE AMINOTRANSFERASE 24 U/L (12-78); ALKALINE PHOSPHATASE 94 U/L (45-117); BILIRUBIN,TOTAL 0.2 mg/dL (0.2-1.0); CREATININE 0.75 mg/dL (0.7-1.3); SALICYLATE LEVEL 3.8 mg/dL (2.8-20.0); TOTAL PROTEIN 7.2 g/dL (6.4-8.2)
--- NOTE | 2019-01-25 19:44 | NUR ---
REPORT RC'VD FROM BEULAH DRAPER. PT WAS SLEEPING IN [facility]. AWAKENS TO VOICE. RV'WD POC WITH PT, INFORMED HIM OF NEED FOR URINE SAMPLE. PT AMBULATED TO BR WITHOUT DIFFICULTY.
[2019-01-25 19:54] LABS: BASOPHILS # (AUTO) 0.03 x10^3/uL (0-0.1); BASOPHILS % (AUTO) 0 % (0-1); EOSINOPHILS # (AUTO) 0.15 x10^3/uL (0-0.4); EOSINOPHILS % (AUTO) 2 % (1-7); LYMPHOCYTES # (AUTO) 2.06 x10^3/uL (1-3.4); LYMPHOCYTES % (AUTO) 24 % (22-44); MD NO; MEAN CORPUSCULAR HEMOGLOBIN 28.9 pg (27.5-34.5); MEAN CORPUSCULAR HGB CONC 32.2 g/dL (33.2-36.2); MEAN CORPUSCULAR VOLUME 89.6 fL (81-97); MEAN PLATELET VOLUME 10.1 fL (7.4-10.4); MONOCYTES % (AUTO) 8 % (2-9); NEUTROPHILS # (AUTO) 5.59 x10^3/uL (1.8-6.8); NEUTROPHILS % (AUTO) 66 % (42-75); PLATELET COUNT 262 x10^3/uL (130-400); RED BLOOD COUNT 4.78 x10^6/uL (4.38-5.82); RED CELL DISTRIBUTION WIDTH 14.6 % (9.4-14.8)
[2019-01-25 20:17] LABS: AMPHETAMINE SCREEN, URINE Positive (Negative); BARBITURATE SCREEN, URINE Negative (Negative); BENZODIAZEPINE SCREEN, URINE Negative (Negative); CANNABINOID SCREEN, URINE Positive (Negative); COCAINE SCREEN, URINE Negative (Negative); METHADONE SCREEN, URINE Negative (Negative); OPIATE SCREEN, URINE Negative (Negative)
--- NOTE | 2019-01-25 21:18 | NUR ---
PHONE REPORT GIVEN TO PSYCHOLOGIST. PLAN FOR TELE PSYCH CONSULT.
[2019-01-25 21:22] VITALS: BP 102/63
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
--- NOTE | 2019-01-25 23:39 | NUR ---
INPATIENT PHONE OPERATOR AT NOW FOR ASSESSMENT.
--- NOTE | 2019-01-25 23:58 | NUR ---
[facility] WILL ACCEPT THE PT
[2019-01-26] MEDS ORDERED: BUPR-173 PO (19:02)
== END 2019-01-26 02:06 | disposition other institution (70) ==
LOC: ED 18:53
DX: R45.851 Suicidal ideations (principal); F32.9 Major depressive disorder, single episode, unspecified; F20.9 Schizophrenia, unspecified; F17.200 Nicotine dependence, unspecified, uncomplicated
CPT/HCPCS: 36415; 80053; 80307; 85025; 99284

== ENCOUNTER 2019-01-26 00:08 | Inpatient (IN) | payer MEDICARE, MEDICAID ==
[~2019-01-26] VITALS: Ht 180.3 cm; Wt 78.9 kg
[2019-01-26] MEDS ORDERED: DOCUSATE 100 MG CAPSULE PO PRN (00:30)
[2019-01-26] MEDS ORDERED: BISACODYL 10 MG SUPP PR PRN (00:30)
[2019-01-26] MEDS ORDERED: ONDANSETRON ODT 4 MG PO PRN (00:30)
[2019-01-26] MEDS ORDERED: POLYETHYLENE GLYCOL 17 GM PACKET PO PRN (00:30)
[2019-01-26 01:00] VITALS: BP_SYST 103; BP_SYST 105; BP_SYST 108; BP_DIAS 69; BP_DIAS 71; BP_DIAS 76
[2019-01-26] MEDS ORDERED: PLEASE ENTER HEIGHT AND WEIGHT MC SCH (01:30)
[2019-01-26 01:45] VITALS: BP 108/76
[2019-01-26 01:48] LABS: MICROSCOPIC NOT IND
[2019-01-26 01:50] LABS: CULTURE INDICATED? NO
[2019-01-26 05:10] LABS: HCT (SEDRATE) 44.1 % (39.2-51.8)
[2019-01-26 05:51] LABS: CHOL/HDL RATIO 3.8; FREE T4 (FREE THYROXINE) 0.98 ng/dL (0.76-1.46); LDL/HDL RATIO 2.4 (0.5-3.0)
[2019-01-26 07:10] VITALS: BP 111/73
[2019-01-26] MEDS ORDERED: RISPERIDONE 2 MG TABLET ONE (12:21)
[2019-01-26] MEDS: RISPERIDONE 2 MG TABLET PO SCH ×2 (12:21→20:41)
[2019-01-26] MEDS ORDERED: LACTULOSE 20 GM/30 ML UDC PO ONE (15:30)
[2019-01-26] MEDS: ACAMPROSATE 333 MG TABLET.DR PO SCH ×2 (15:45→20:41)
[2019-01-26] MEDS: THIAMINE 100MG TABLET PO SCH (15:45)
[2019-01-26] MEDS: FOLIC ACID 1 MG TABLET PO SCH (15:47)
[2019-01-26] MEDS: QUETIAPINE 25MG TABLET PO PRN (17:44)
[2019-01-26] MEDS ORDERED: BUPR-173 PO (19:02)
[2019-01-26 19:36] VITALS: BP 117/71
[2019-01-27 07:38] VITALS: BP 92/65
[2019-01-27] MEDS: FOLIC ACID 1 MG TABLET PO SCH (09:28)
[2019-01-27] MEDS: ACAMPROSATE 333 MG TABLET.DR PO SCH ×3 (09:28→20:03)
[2019-01-27] MEDS: THIAMINE 100MG TABLET PO SCH (09:28)
[2019-01-27] MEDS: RISPERIDONE 2 MG TABLET PO SCH ×2 (09:31→20:04)
[2019-01-27] MEDS: NICOTINE 21 MG/24 HR PATCH.TD24 TD SCH (09:37)
[2019-01-27] MEDS: ACETAMINOPHEN 325 MG TABLET PO PRN ×2 (15:53→20:04)
[2019-01-27] MEDS ORDERED: LORazepam 1MG TABLET ONE (18:18)
[2019-01-27] MEDS ORDERED: LORazepam 1MG TABLET PO ONE (18:30)
[2019-01-27 19:59] VITALS: BP 96/65
[2019-01-28 07:34] VITALS: BP 104/66
[2019-01-28] MEDS: ACAMPROSATE 333 MG TABLET.DR PO SCH ×3 (09:30→20:45)
[2019-01-28] MEDS: RISPERIDONE 2 MG TABLET PO SCH ×2 (09:31→20:45)
[2019-01-28] MEDS: FOLIC ACID 1 MG TABLET PO SCH (09:31)
[2019-01-28] MEDS: THIAMINE 100MG TABLET PO SCH (09:31)
[2019-01-28] MEDS: NICOTINE 21 MG/24 HR PATCH.TD24 TD SCH (09:33)
[2019-01-28] MEDS: QUETIAPINE 25MG TABLET PO PRN (18:24)
[2019-01-28 19:49] VITALS: BP 115/74
[2019-01-29 07:15] VITALS: BP 110/65
[2019-01-29 07:18] VITALS: BP 101/68
[2019-01-29] MEDS: FOLIC ACID 1 MG TABLET PO SCH (08:59)
[2019-01-29] MEDS: THIAMINE 100MG TABLET PO SCH (08:59)
[2019-01-29] MEDS: ACAMPROSATE 333 MG TABLET.DR PO SCH ×3 (08:59→20:34)
[2019-01-29] MEDS: RISPERIDONE 2 MG TABLET PO SCH ×2 (08:59→20:35)
[2019-01-29] MEDS: NICOTINE 21 MG/24 HR PATCH.TD24 TD SCH (09:00)
[2019-01-29] MEDS: QUETIAPINE 25MG TABLET PO PRN (14:33)
[2019-01-29] MEDS: ACETAMINOPHEN 325 MG TABLET PO PRN (15:16)
[2019-01-29 19:40] VITALS: BP 115/78
[2019-01-30 07:19] VITALS: BP 103/72
[2019-01-30] MEDS: RISPERIDONE 2 MG TABLET PO SCH ×2 (08:50→20:35)
[2019-01-30] MEDS: THIAMINE 100MG TABLET PO SCH (08:50)
[2019-01-30] MEDS: ACAMPROSATE 333 MG TABLET.DR PO SCH ×3 (08:50→20:35)
[2019-01-30] MEDS: FOLIC ACID 1 MG TABLET PO SCH (08:50)
[2019-01-30] MEDS: NICOTINE 21 MG/24 HR PATCH.TD24 TD SCH (10:38)
[2019-01-30 19:54] VITALS: BP 114/73
[2019-01-31 07:18] VITALS: BP 112/78
[2019-01-31] MEDS: THIAMINE 100MG TABLET PO SCH (08:48)
[2019-01-31] MEDS: ACAMPROSATE 333 MG TABLET.DR PO SCH ×3 (08:48→20:14)
[2019-01-31] MEDS: RISPERIDONE 2 MG TABLET PO SCH ×2 (08:48→20:15)
[2019-01-31] MEDS: FOLIC ACID 1 MG TABLET PO SCH (08:48)
[2019-01-31] MEDS: NICOTINE 21 MG/24 HR PATCH.TD24 TD SCH (08:49)
[2019-01-31] MEDS: QUETIAPINE 25MG TABLET PO PRN (15:22)
[2019-01-31] MEDS: ACETAMINOPHEN 325 MG TABLET PO PRN (15:22)
[2019-01-31 19:20] VITALS: BP 99/62
[2019-02-01 07:20] VITALS: BP 110/73
[2019-02-01] MEDS: ACAMPROSATE 333 MG TABLET.DR PO SCH ×3 (08:19→20:19)
[2019-02-01] MEDS: NICOTINE 21 MG/24 HR PATCH.TD24 TD SCH (08:20)
[2019-02-01] MEDS: FOLIC ACID 1 MG TABLET PO SCH (08:20)
[2019-02-01] MEDS: RISPERIDONE 2 MG TABLET PO SCH ×2 (08:20→20:19)
[2019-02-01] MEDS: THIAMINE 100MG TABLET PO SCH (08:20)
[2019-02-01] MEDS ORDERED: NICO-487 TD (14:52)
[2019-02-01] MEDS ORDERED: RISP2TAB35 PO (14:52)
[2019-02-01] MEDS ORDERED: ACAM333T7 PO (14:52)
[2019-02-01] MEDS: ACETAMINOPHEN 325 MG TABLET PO PRN (14:54)
[2019-02-01] MEDS: QUETIAPINE 25MG TABLET PO PRN (14:55)
[2019-02-01 19:40] VITALS: BP 117/80
[2019-02-02 07:28] VITALS: BP 111/79
[2019-02-02] MEDS: NICOTINE 21 MG/24 HR PATCH.TD24 TD SCH (09:03)
[2019-02-02] MEDS: THIAMINE 100MG TABLET PO SCH (09:03)
[2019-02-02] MEDS: FOLIC ACID 1 MG TABLET PO SCH (09:03)
[2019-02-02] MEDS: RISPERIDONE 2 MG TABLET PO SCH (09:03)
[2019-02-02] MEDS: ACAMPROSATE 333 MG TABLET.DR PO SCH (09:03)
== END 2019-02-02 09:20 | disposition home or self-care (01) | DRG 885 ==
LOC: 3E 00:57
PROVIDERS: ADMIT Psychiatry & Neurology Psychosomatic Medicine; ATTEND Psychiatry & Neurology Psychosomatic Medicine
DX: F25.1 Schizoaffective disorder, depressive type (principal); F15.20 Other stimulant dependence, uncomplicated; E72.20 Disorder of urea cycle metabolism, unspecified; F19.10 Other psychoactive substance abuse, uncomplicated; F12.10 Cannabis abuse, uncomplicated; F10.10 Alcohol abuse, uncomplicated; F17.210 Nicotine dependence, cigarettes, uncomplicated; Z79.899 Other long term (current) drug therapy; Z91.010 Allergy to peanuts; Z82.49 Family history of ischemic heart disease and other diseases of the circulatory system; Z83.3 Family history of diabetes mellitus; Z59.0 Homelessness; Z91.14 Patient's other noncompliance with medication regimen; Z71.51 Drug abuse counseling and surveillance of drug abuser
CPT/HCPCS: 36415; 71045; 80053; 80061; 80307; 81003; 82140; 82607; 84439; 84443; 84481; 85025; 85651; 93005; 99284

== ENCOUNTER 2019-04-03 18:55 | Emergency (ER) | payer MEDICARE, MEDICAID ==
[~2019-04-03] VITALS: Ht 175.3 cm; Wt 86.8 kg
[~2019-04-03 18:55] MED LIST changes: +ACAM333T7 PO; +BUPR-173 PO; +NICO-487 TD; +RISP2TAB35 PO
[2019-04-03 20:54] LABS: BASOPHILS # (AUTO) 0.16 x10^3/uL (0-0.1); BASOPHILS % (AUTO) 2 % (0-1); EOSINOPHILS # (AUTO) 0.12 x10^3/uL (0-0.4); EOSINOPHILS % (AUTO) 1 % (1-7); LYMPHOCYTES # (AUTO) 2.33 x10^3/uL (1-3.4); LYMPHOCYTES % (AUTO) 28 % (22-44); MD NO; MEAN CORPUSCULAR HEMOGLOBIN 29.1 pg (27.5-34.5); MEAN CORPUSCULAR HGB CONC 32.7 g/dL (33.2-36.2); MEAN CORPUSCULAR VOLUME 88.9 fL (81-97); MEAN PLATELET VOLUME 9.9 fL (7.4-10.4); MONOCYTES # (AUTO) 0.91 x10^3/uL (0.2-0.8); MONOCYTES % (AUTO) 11 % (2-9); NEUTROPHILS # (AUTO) 4.72 x10^3/uL (1.8-6.8); NEUTROPHILS % (AUTO) 57 % (42-75); PLATELET COUNT 268 x10^3/uL (130-400); RED BLOOD COUNT 4.79 x10^6/uL (4.38-5.82); RED CELL DISTRIBUTION WIDTH 14.7 % (9.4-14.8)
[2019-04-03 21:06] LABS: ALBUMIN 3.4 g/dL (3.4-5.0); ANION GAP 4 mmol/L (5-15); CALCIUM 8.9 mg/dL (8.5-10.1); CHLORIDE 107 mmol/L (98-107)
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
--- NOTE | 2019-04-03 21:35 | NUR ---
PT REPORTS HE IS GOING TO LEAVE HERE AND KILL HIMSELF. "I'M NOT GOING TO TELL ANYONE HOW I'M GOING TO DO IT CAUSE THEN THEY'LL STOP ME" HE ALSO REPEATED MULTIPLE TIMES "I'M NOT GOING TO DO IT, LIFE IS TO SHORT, I'M NOT GOING TO DO IT". INTENTION OF SELF HARM AND PLAN IS UNCLEAR AT THIS TIME. PTS BELONGINGS COLLECTED AND PLACED IN 3 BAGS. SITTER OUTSIDE ROOM. WILL CONTINUE TO MONITOR.
[2019-04-03 21:41] VITALS: BP 109/63
--- NOTE | 2019-04-03 22:05 | NUR ---
TELEPSYCH IN PROGRESS NOW
--- NOTE | 2019-04-03 22:57 | NUR ---
RECEIVED DC ORDERS FROM ED PROVIDER. WHEN ASKING PT TO GET DRESSED FOR DC HE STATES "I WANT TO KILL MYSELF, I REALLY WILL KILL MYSELF IF YOU GUYS LET ME GO". WILL NOTIFY PROVIDER TO REEVALUATE PLAN. SUBHA REMAINS AT BEDSIDE.
--- NOTE | 2019-04-03 23:09 | NUR ---
PT REFUSED TO SIGN DC PAPER WORK. AMBULATED OUT OF ED W/ A STEADY GAIT.
== END 2019-04-03 23:07 | disposition home or self-care (01) ==
LOC: ED 21:22
DX: F25.1 Schizoaffective disorder, depressive type (principal); F17.200 Nicotine dependence, unspecified, uncomplicated; Z72.9 Problem related to lifestyle, unspecified
CPT/HCPCS: 36415; 80048; 80307; 82040; 85025; 99284

== ENCOUNTER 2019-04-04 04:15 | Emergency (ER) | payer MEDICAID, MEDICARE ==
[~2019-04-04] VITALS: Ht 180.3 cm; Wt 85.7 kg
[2019-04-04 04:19] VITALS: BP 127/86
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
== END 2019-04-04 05:02 | disposition home or self-care (01) ==
LOC: ED 04:51
DX: F41.1 Generalized anxiety disorder (principal); Z00.00 Encounter for general adult medical examination without abnormal findings; F15.129 Other stimulant abuse with intoxication, unspecified; Z59.0 Homelessness
CPT/HCPCS: 99281

== ENCOUNTER 2019-05-11 17:18 | Emergency (ER) | payer MEDICAID, MEDICARE ==
[~2019-05-11] VITALS: Ht 180.3 cm; Wt 86.4 kg
[~2019-05-11 17:18] MED LIST changes: -TRAZ-137 PO; +TRAZ-175 PO
[2019-05-11 17:22] VITALS: BP 121/80
--- NOTE | 2019-05-11 17:27 | NUR ---
triage note: there wa a peanut allergy listed in chart but pt denies this and stated thta he has no allergies
[2019-05-11] MEDS ORDERED: IBUPROFEN 600 MG TABLET ONE (17:47)
[2019-05-11] MEDS ORDERED: hydrOXyzine 10MG TABLET PO STA (17:48)
[2019-05-11] MEDS ORDERED: IBUPROFEN 200 MG TABLET PO ONE (18:00)
== END 2019-05-11 18:16 | disposition home or self-care (01) ==
LOC: ED 17:52
DX: M25.571 Pain in right ankle and joints of right foot (principal); F41.1 Generalized anxiety disorder; F17.200 Nicotine dependence, unspecified, uncomplicated; F25.9 Schizoaffective disorder, unspecified; F32.9 Major depressive disorder, single episode, unspecified
CPT/HCPCS: 99283

== ENCOUNTER 2019-05-26 12:30 | Emergency (ER) | payer MEDICARE, MEDICAID ==
[~2019-05-26] VITALS: Ht 190.5 cm; Wt 85.4 kg
[2019-05-26 12:32] VITALS: BP 126/69
--- NOTE | 2019-05-26 13:22 | NUR ---
PT BROUGHT BACK FROM TRIAGE WITH CHIEF COMPLAINT OF COUGH AND BACK PAIN FOR 2 DAYS. DENIES FEVER, N/V. RN PPE IN PLACE
[2019-05-26 14:47] LABS: RAPID INFLUENZA A Negative (Negative); RAPID INFLUENZA B Negative (Negative)
--- NOTE | 2019-05-26 15:12 | NUR ---
DISCHARGE INSTRUCTIONS REVIEWED
== END 2019-05-26 15:20 | disposition home or self-care (01) ==
LOC: ED 13:00
DX: B34.9 Viral infection, unspecified (principal); F20.9 Schizophrenia, unspecified; R07.89 Other chest pain
CPT/HCPCS: 71046; 87081; 87400; 87880; 93005; 99285

== ENCOUNTER 2019-05-31 09:43 | Emergency (ER) | payer MEDICARE, MEDICAID ==
[~2019-05-31] VITALS: Ht 180.3 cm; Wt 84.1 kg
[2019-05-31 10:47] LABS: BASOPHILS # (AUTO) 0.02 x10^3/uL (0-0.1); BASOPHILS % (AUTO) 0 % (0-1); EOSINOPHILS # (AUTO) 0.03 x10^3/uL (0-0.4); EOSINOPHILS % (AUTO) 1 % (1-7); LYMPHOCYTES % (AUTO) 12 % (22-44); MD NO; MEAN CORPUSCULAR HEMOGLOBIN 29.1 pg (27.5-34.5); MEAN CORPUSCULAR HGB CONC 32.3 g/dL (33.2-36.2); MEAN CORPUSCULAR VOLUME 90.1 fL (81-97); MEAN PLATELET VOLUME 9.5 fL (7.4-10.4); MONOCYTES # (AUTO) 0.69 x10^3/uL (0.2-0.8); MONOCYTES % (AUTO) 10 % (2-9); NEUTROPHILS # (AUTO) 5.39 x10^3/uL (1.8-6.8); NEUTROPHILS % (AUTO) 78 % (42-75); PLATELET COUNT 234 x10^3/uL (130-400); RED BLOOD COUNT 5.08 x10^6/uL (4.38-5.82); RED CELL DISTRIBUTION WIDTH 14.8 % (9.4-14.8)
[2019-05-31 10:54] LABS: ALBUMIN 3.4 g/dL (3.4-5.0); ANION GAP 9 mmol/L (5-15); CALCIUM 8.4 mg/dL (8.5-10.1); CHLORIDE 107 mmol/L (98-107); CREATININE 1.25 mg/dL (0.7-1.3)
[2019-05-31 10:56] LABS: CREATINE KINASE, TOTAL 374 U/L (39-308)
--- NOTE | 2019-05-31 11:02 | NUR ---
PT SLEEPING IN GURNEY, AWIATING LAB RESULTS. EQUAL CHEST RISE AND FALL. CALL LIGHT WTIHIN REACH.
[2019-05-31] MEDS ORDERED: MAGNESIUM OXIDE 400 MG TABLET PO ONE (12:00)
[2019-05-31] MEDS ORDERED: MAGNESIUM OXIDE 400 MG TABLET ONE (12:06)
[2019-05-31 12:34] VITALS: BP 113/58
--- NOTE | 2019-05-31 12:36 | NUR ---
PT AMBULATED TO DC DESK WITH STEADY GAIT.
== END 2019-05-31 12:37 | disposition home or self-care (01) ==
LOC: ED 10:14
DX: M62.82 Rhabdomyolysis (principal); E83.42 Hypomagnesemia; G47.62 Sleep related leg cramps; F22 Delusional disorders
CPT/HCPCS: 36415; 80048; 82040; 82550; 83605; 83735; 85025; 99283

== ENCOUNTER 2019-06-07 19:20 | Emergency (ER) | payer MEDICARE, MEDICAID ==
[~2019-06-07] VITALS: Ht 180.3 cm; Wt 85.0 kg
[2019-06-07 19:26] VITALS: BP 117/68
== END 2019-06-07 20:29 | disposition home or self-care (01) ==
LOC: ED 20:19
DX: J02.0 Streptococcal pharyngitis (principal); R07.89 Other chest pain; Z72.9 Problem related to lifestyle, unspecified
CPT/HCPCS: 99283

== ENCOUNTER 2019-06-28 20:17 | Emergency (ER) | payer MEDICARE, MEDICAID ==
[~2019-06-28] VITALS: Ht 180.3 cm; Wt 83.5 kg
[2019-06-28 20:24] VITALS: BP 115/75
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
== END 2019-06-28 20:50 | disposition left against medical advice (07) ==
LOC: ED 20:41
DX: F15.10 Other stimulant abuse, uncomplicated (principal); R07.9 Chest pain, unspecified; M79.604 Pain in right leg; M79.605 Pain in left leg; Z72.9 Problem related to lifestyle, unspecified; F20.9 Schizophrenia, unspecified
CPT/HCPCS: 99281

== ENCOUNTER 2019-11-03 08:13 | Emergency (ER) | payer MEDICARE, MEDICAID ==
[~2019-11-03] VITALS: Ht 180.3 cm; Wt 82.4 kg
[2019-11-03 08:27] VITALS: BP 128/83
== END 2019-11-03 09:38 | disposition home or self-care (01) ==
LOC: ED 09:30
DX: Z76.0 Encounter for issue of repeat prescription (principal); R06.02 Shortness of breath; R05 Cough; J45.909 Unspecified asthma, uncomplicated; F17.200 Nicotine dependence, unspecified, uncomplicated
CPT/HCPCS: 71045; 93005; 99283

== ENCOUNTER 2020-06-16 23:32 | Emergency (ER) | payer MEDICARE, MEDICAID ==
[~2020-06-16] VITALS: Ht 180.3 cm; Wt 80.0 kg
[~2020-06-16 23:32] MED LIST changes: -NICO-487 TD; +NICO-587 TD
[2020-06-16 23:35] VITALS: BP 151/102
--- NOTE | 2020-06-16 23:54 | NUR ---
pt resting quietly in bed with eyes closed and even unlabored respirations. pt arousable to light tactile stimulation,provided betadine soak for r hand. pt able to soak fingers in betadine bath while resting. no signs or symptoms of acute distress noted respirations even and unlabored
== END 2020-06-17 01:23 | disposition home or self-care (01) ==
LOC: ED 06-17 00:38
DX: L03.011 Cellulitis of right finger (principal); F10.10 Alcohol abuse, uncomplicated; F15.10 Other stimulant abuse, uncomplicated; Z72.9 Problem related to lifestyle, unspecified; Y90.0 Blood alcohol level of less than 20 mg/100 ml
CPT/HCPCS: 99283

== ENCOUNTER 2020-08-01 21:04 | Emergency (ER) | payer MEDICARE, MEDICAID ==
[~2020-08-01] VITALS: Ht 182.9 cm; Wt 76.3 kg
[2020-08-01 21:10] VITALS: BP 114/81
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
== END 2020-08-01 21:33 | disposition home or self-care (01) ==
LOC: ED 21:14
DX: Z00.8 Encounter for other general examination (principal); H92.09 Otalgia, unspecified ear; Z72.9 Problem related to lifestyle, unspecified; F17.200 Nicotine dependence, unspecified, uncomplicated; F25.9 Schizoaffective disorder, unspecified; F32.9 Major depressive disorder, single episode, unspecified
CPT/HCPCS: 99281